=== PATIENT | female | born 1950 | race Caucasian/White ===

== ENCOUNTER → 2017-03-06 | Outpatient (CLI) | payer MEDICARE, BC ==
[~2017-03-06] MED LIST: AMARYL; CELEXA; DICYCLOMINE HCL20 MG; HUMULIN N300 U/3 ML; LORCET PLUS TAB1 TA1 PO; NOVALOG; PROTONIX; REGLAN
--- NOTE | ~2017-03-06 | CR63 ---
[facility] A Service of [facility] & [facility] RADIOLOGY TEXT RESULTS PATIENT: BARBI GANNON LOCATION: [facility] : 50 UNIT #: [id number] AGE: [address]: June Oneal MD SEX: F ORDER DR: [id number] [facility] [address] [facility] [place], [place] [address] [id number] O MR#: [id number] Acc #: [id number] NAME: BARBI GANNON : 1950 SEX: F STUDY DATE/TIME: 03/06/2017 13:51 UNIT: [facility] ROOM: STUDY DESCRIPTION: CR Chest 2 View Attending Physician: June Oneal M.D. Referring Physician: June Oneal M.D. Ordering Physician: June Oneal M.D. Primary Care Physician: Quintin Mishra M.D. MEDICAL IMAGING REPORT This report is preliminary unless electronic signature is present EXAM Chest 03/06/2017 [facility] HISTORY 66-year-old woman unexplained cough past week. History of sarcoid, asthma and BTs COMPARISON Chest 11/10/2009 FINDINGS PA and lateral chest views demonstrate normal cardiac size and configuration. Hilar structures are preserved. Moderate fixed hiatal hernia is present. Bilateral lungs are expanded and clear. Costophrenic angles are preserved. IMPRESSION Moderate fixed hiatal hernia. No acute chest finding. Dictated by... Joni Dewitt M.D. THIS IS AN ELECTRONICALLY VERIFIED REPORT Joni Dewitt M.D. at 03/07/2017 8:13 AM JOSELINB/gia TD: 03/06/2017 22:10 JOB #: [id number] MEDICAL IMAGING REPORT Page 1 of 1 COPY
--- NOTE | ~2017-03-06 | CR172 ---
[facility] A Service of [facility] & [facility] RADIOLOGY TEXT RESULTS PATIENT: BARBI GANNON LOCATION: [facility] : 50 UNIT #: [id number] AGE: [address]: June Oneal MD SEX: F ORDER DR: [id number] [facility] [address] [facility]. [place], [place] [address] [id number] O MR#: [id number] Acc #: [id number] NAME: BARBI GANNON : 1950 SEX: F STUDY DATE/TIME: 03/06/2017 13:51 UNIT: [facility] ROOM: STUDY DESCRIPTION: CR Knee 3 Views Lt Attending Physician: June Oneal M.D. Referring Physician: June Oneal M.D. Ordering Physician: June Oneal M.D. Primary Care Physician: Quintin Mishra M.D. MEDICAL IMAGING REPORT This report is preliminary unless electronic signature is present EXAM Left knee, 3 views. COMPARISON March 01, 2015, and February 23, 2015. INDICATIONS 66-year-old female with left knee pain for 2-3 years. History of sarcoidosis and arthritis. FINDINGS There is severe degenerative change of patellofemoral joint with [id number] touching in the lateral aspect. There is a very large lateral marginal osteophyte of the patella, unchanged from 2015. There are chronic ossicles seen at the superior and superolateral margin of the patella, which may possibly be within the substance of the quadriceps tendon. There is no significant suprapatellar effusion. There is chondrocalcinosis, a finding which can be seen in pseudogout. There is mild marginal osteophyte formation of both medial and lateral tibial plateaus. No evidence of acute fracture. IMPRESSION 1. No acute fracture or dislocation of the left knee. There is severe patellofemoral osteoarthritis with [id number] touching at the lateral patellofemoral facet, stable from 2014. There are large chronic ossicles superior and superolateral to the patella, which are stable since that time as well, possibly within the substance of the quadriceps tendon and reflecting quadriceps tendinopathy. There is also a very large stable osteophyte along the lateral margin of the patella. 2. Chondrocalcinosis, a finding which can be seen in pseudogout. [facility] A Service of [facility] RADIOLOGY TEXT RESULTS PATIENT: BARBI GANNON [id number] [birth year] UNIT #: [id number] AGE: [address]: June Oneal MD SEX: F ORDER DR: Dictated by... Esteban Epstein M.D. THIS IS AN ELECTRONICALLY VERIFIED REPORT Esteban Epstein M.D. at 03/10/2017 4:31 PM FLAVIO/bharath TD: 03/07/2017 06:04 JOB #: [id number] MEDICAL IMAGING REPORT Page 1 of 1 COPY
== END | disposition home or self-care (01) ==
LOC: CRAD 13:29
DX: R05 Cough (principal); M25.562 Pain in left knee; K44.9 Diaphragmatic hernia without obstruction or gangrene; M17.12 Unilateral primary osteoarthritis, left knee; M25.762 Osteophyte, left knee; M11.262 Other chondrocalcinosis, left knee
CPT/HCPCS: 71020; 73562